=== PATIENT | female | born 1990 | race African-American/Black ===

== ENCOUNTER 2025-05-03 08:15 | Outpatient (RCR) | payer MEDICAID, SELFPAY ==
--- NOTE | 2025-02-07 08:48 | OPREHPOC ---
Outpatient Therapy Plan of Care This is a Multidisciplinary Plan of Care that may contain components documented by all disciplines (PT, OT, and ST.) PT Problem 1 PT Problem #1 Knowledge Deficit PT Goal 1 Goal / Goal Update 1*independent with HEP 2* correct body mechanics and posture with exercises Target Visit 6 PT Problem 2 PT Problem #2 Pain PT Goal 1 Goal / Goal Update *pt report R hip pain 3/10 at worst Target Visit 6 PT Problem 3 PT Problem #3 Impaired Flexibility PT Goal 1 Goal / Goal Update improve flexibility of R hip 1* supine piriformis stretch without pain 2* side lying hip ITB stretch, pt report R=L tightness 3* no pain reported with supine R hip flexion stretch Target Visit 6 PT Problem 4 PT Problem #4 Impaired Strength PT Goal 1 Goal / Goal Update * increase trunk/abdominal strength to 4+/5, to improve stability to hip Target Visit 6
--- NOTE | 2025-02-07 08:48 | PTOPEVAL1 ---
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 ray per pt-- ossification activity: office work; try to do some leg exercises and walking about 1 hour/day- started about 3 months ago and it helps some; Reported Pain Level Pain Score Self Report Additional Pain Score Comments pain range in the past week 3-02/07: aching lateral hip, radiates sometimes to toes/foot; also have some back pain increase pain: sitting about 1 hour, after walking about 1 hour decrease pain: change positions, stretching, 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 LE functional scale self rating of 25% limitation in activity level. She reports the xray stated bony changes of hip. Also have some back pain since starting an office job and sitting more. She is doing walking and fitness exercises. With the evaluation: she has pain increase with supine R hip flexion, IR ROM and piriformis stretching; tenderness over R lateral hip joint and ITB with spasms; Skilled PT services are indicated for modalities to decrease hip and ITB pain, therapeutic exercises to stretch R hip and strengthen trunk with education for HEP, posture and body mechanics . Plan of Care Interventions Electrical Stimulation,Hot Pack/Cold Pack,Manual Therapy,Neuro Re-education,Patient/Caregiver Education,Therapeutic Activities,Therapeutic Exercise,Ultrasound,Other Other Interventions taping PT Services Indicated Yes Treatment Frequency and 1x/wk for 6 visits Duration These treatments will address the objective and functional deficits as defined above. The patient will be advanced safely and appropriately in order for the patient to progress towards his/her prior level of function. Additional exercises will be introduced and as well as a comprehensive home exercise program upon discharge, if needed, ?to ensure carryover of functional gains achieved in the clinic. This treatment plan has been reviewed and agreement upon by the patient.
--- NOTE | 2025-02-07 08:49 | PCPTNOTE ---
pt was 10 minutes late for PT evaluation.
--- NOTE | 2025-02-07 08:53 | PCPTNOTE ---
pt was 10 minutes late for evaluation appointment.
--- NOTE | 2025-03-21 10:56 | OPREHPOC ---
Outpatient Therapy Plan of Care This is a Multidisciplinary Plan of Care that may contain components documented by all disciplines (PT, OT, and ST.) PT Problem 1 PT Problem #1 Knowledge Deficit PT Goal 1 Goal / Goal Update 1*independent with HEP 2* correct body mechanics and posture with exercises 03-21-25 progress met goal continue to progress education and HEP Target Visit 12 PT Problem 2 PT Problem #2 Pain PT Goal 1 Goal / Goal Update *pt report R hip pain 3/10 at worst 03-21-25 progress met goal Target Visit 6 Progress Met PT Goal 2 Goal / Goal Update NEW GOAL * pain rating of 1/10 at worst Target Visit 12 PT Problem 3 PT Problem #3 Impaired Flexibility PT Goal 1 Goal / Goal Update improve flexibility of R hip 1* supine piriformis stretch without pain 2* side lying hip ITB stretch, pt report R=L tightness 3* no pain reported with supine R hip flexion stretch 03-21-25 progress met goal 1; continue towards goals 2,3 Target Visit 12 PT Problem 4 PT Problem #4 Impaired Strength PT Goal 1 Goal / Goal Update 1* increase trunk/abdominal strength to 4+/5, to improve stability to hip 03-21-25 progress goal not met continue towards goal ADD: 2* single leg standing 30 seconds R with good stability 3* single leg PF x 15 reps L with good stability Target Visit 12
--- NOTE | 2025-03-21 10:56 | PTOPPROG ---
Assessment and note entered by Rabia Rich, PT Assessment Status Progress ICD-10 Condition Codes (PT) Pain in right hip M25.551 Onset about 1 year ago Subjective Information hip is hurting less and stronger; doing all the exercises at home; want to continue therapy to get even better and stronger. PAIN; range in the past week: 0-3/10; R lateral hip- stabbing pain; increase pain: walking 2 miles/ 1 hour up on feet; sitting 30-45 minutes decrease pain: stretching, over the counter med PRN, heat pad sleeping is OK Assessment PT Clinical Summary Diana has received 6 PT sessions. Compared to the initial evaluation: pain rating from 3-6/10 and now 0-3/10; self assessment LE functional scale rating from 25 to 6% limitation in activity level; increase flexibility of R piriformis and ITB without pain; R hip flexion and IR motions increase pain; increase strength of R hip, but is less than L; education for HEP, posture, body mechanics. The goals were partially met. Continue PT treatment. Plan of Care Interventions Electrical Stimulation,Hot Pack/Cold Pack,Manual Therapy,Neuro Re-education,Patient/Caregiver Education,Therapeutic Activities,Therapeutic Exercise,Ultrasound,Other Other Interventions taping PT Services Indicated Yes Treatment Frequency and 1x/wk for 6 visits Duration These treatments will address the objective and functional deficits as defined above. The patient will be advanced safely and appropriately in order for the patient to progress towards his/her prior level of function. Additional exercises will be introduced and as well as a comprehensive home exercise program upon discharge, if needed, ?to ensure carryover of functional gains achieved in the clinic. This treatment plan has been reviewed and agreement upon by the patient.
== END 2025-05-08 23:59 | disposition home or self-care (01) ==
LOC: ANHPT 08:15
DX: M25.551 Pain in right hip (principal); G89.29 Other chronic pain
CPT/HCPCS: 97110; 97112; 97140; 97161; 97530

== ENCOUNTER 2025-05-10 10:09 | Outpatient (RCR) | payer MEDICAID, SELFPAY ==
--- NOTE | 2025-05-10 09:48 | OPREHPOC ---
Outpatient Therapy Plan of Care This is a Multidisciplinary Plan of Care that may contain components documented by all disciplines (PT, OT, and ST.) PT Problem 1 PT Problem #1 Knowledge Deficit PT Goal 1 Goal / Goal Update 1*independent with HEP 2* correct body mechanics and posture with exercises 03-21-25 progress met goal continue to progress education and HEP 05-10-25 d/c goal met Target Visit 12 Progress Met PT Problem 2 PT Problem #2 Pain PT Goal 1 Goal / Goal Update *pt report R hip pain 3/10 at worst 03-21-25 progress met goal Target Visit 6 Progress Met PT Goal 2 Goal / Goal Update NEW GOAL * pain rating of 1/10 at worst 05-10-25 d/c goal not met, 5/10 at worst Target Visit 12 Progress Not Met PT Problem 3 PT Problem #3 Impaired Flexibility PT Goal 1 Goal / Goal Update improve flexibility of R hip 1* supine piriformis stretch without pain 2* side lying hip ITB stretch, pt report R=L tightness 3* no pain reported with supine R hip flexion stretch 03-21-25 progress met goal 1; continue towards goals 2,3 05-10-25 d/c goals met Target Visit 12 Progress Met PT Problem 4 PT Problem #4 Impaired Strength PT Goal 1 Goal / Goal Update 1* increase trunk/abdominal strength to 4+/5, to improve stability to hip 03-21-25 progress goal not met continue towards goal ADD: 2* single leg standing 30 seconds R with good stability 3* single leg PF x 15 reps L with good stability 05-10-25 d/c goals met Target Visit 12 Progress Met
--- NOTE | 2025-05-10 09:48 | PTOPDC ---
Assessment and note entered by Rabia Rich, PT Assessment Status Discharge ICD-10 Condition Codes (PT) Pain in right hip M25.551 Onset about 1 year ago Subjective Information doing good, doing the exercises at home and hip has not hurt for the past few weeks; sitting for about 1 hour is the only thing that hurts- makes the hip ache over buttock and side of hip; is doing everything and going to the gym for exercises. Reported Pain Level Pain Score Self Report Pain Score Self Report Additional Pain Score Comments after sitting about 1 hour ache of 5/10 in R lateral hip and buttock; when get up and stretch by crossing leg and hamstring stretch it eases Assessment PT Clinical Summary Diana has received a total of 12 PT sessions. Today with assessment: pain rating of 0-5/10 in R lateral hip and ITB; only thing that increases her pain is sitting for one hour, and with moving and stretching, pain eases; increase strength of trunk and R hip with good flexibility of R hip without pain; education completed for HEP, body mechanics/posture, pain management with stretching , self massage with foam roller and use of cupping massage tool. The goals were achieved, except pain rating at the worst. Discharge PT. She is to continue with her HEP. Plan of Care PT Services Indicated No
== END 2025-05-10 10:42 | disposition home or self-care (01) ==
LOC: ANHPT 10:09
DX: M25.551 Pain in right hip (principal); G89.29 Other chronic pain
CPT/HCPCS: 97110; 97140